=== PATIENT | male | born 1945 ===

== ENCOUNTER 2020-07-12 06:27 | Day surgery (SDC) | payer OTHER | END 2020-07-12 12:15 | disposition home or self-care (01) | LOC: AMB-ENDOS 06:27 | PROVIDERS: ATTEND Colon & Rectal Surgery | DX: K29.60 Other gastritis without bleeding (principal); K44.9 Diaphragmatic hernia without obstruction or gangrene; K62.89 Other specified diseases of anus and rectum; K64.0 First degree hemorrhoids ==